=== PATIENT | female | born 1955 | race Caucasian/White ===

== ENCOUNTER 2020-01-18 19:37 | Inpatient (IN) ==
[2020-01-18] MEDS ORDERED: APRESOLINE IV ONE ×2 (20:03→21:11)
--- NOTE | 2020-01-18 20:07 | EKG Report ---
Test Performed on : 01/18/2020 7:50:46 PM Test Reason : High Blood Pressure Hx. of CAD Blood Pressure : / mmHG Vent. Rate : 059 BPM Atrial Rate : 059 BPM P-R Int : 136 ms QRS Dur : 084 ms QT Int : 446 ms P-R-T Axes : 029 -24 087 degrees QTc Int : 441 ms Sinus bradycardia. Possible Anterior infarct , age undetermined Abnormal ECG When compared with ECG of 04-JUN-2018 21:13, Nonspecific T wave abnormality now evident in Inferior leads Nonspecific T wave abnormality, worse in Anterolateral leads Unconfirmed Result
[2020-01-18 20:35] LABS: BASO# 0.01 X1000 (0.0-0.2); BASO% 0.2 % (0.0-0.8); EOS# 0.06 X1000 (0.0-0.7); EOS% 1.1 % (0.0-10.0); HEMATOCRIT 38.2 % (37.0-47.0); HEMOGLOBIN 12.3 g/dL (12.0-16.0); LYMPH# 2.03 X1000 (1.2-3.4); LYMPH% 36.3 % (20.5-51.1); MCH 28.7 PG (27-31); MCHC 32.2 g/dL (33-37); MONO# 0.36 X1000 (0.11-0.59); MONO% 6.4 % (1.7-9.3); NEUT# 3.14 X1000 (1.4-6.5); PLT 174 X1000 (130-400); RBC 4.29 XMIL (4.2-5.4); RDW 13.4 % (11.5-14.5)
[2020-01-18 20:53] LABS: ALB/GLOB RATIO 1.6; ALBUMIN 3.9 g/dL (3.5-5.0); CALCIUM 8.6 mg/dL (8.8-10.2); CREATININE 1.7 mg/dL (0.5-0.9); POTASSIUM 4.5 mmol/L (3.5-5.1); TOTAL BILIRUBIN 0.27 mg/dL (0.20-1.00); TOTAL PROTEIN 6.4 g/dL (6.3-8.3)
[2020-01-18] MEDS ORDERED: NS 500 ML IV ONE (20:55)
--- NOTE | 2020-01-18 21:38 | Diag Imaging Result Doc PS360 ---
EXAM: CT HEAD W/O CONTRAST INDICATION: HTN, RIVERA TECHNIQUE: This exam was performed using automated exposure control, adjustment of mA or kV according to patient size, and/or use of iterative reconstruction technique. COMPARISON: 05/31/2018 FINDINGS: There is low-attenuation in the periventricular and subcortical white matter suggesting advanced microangiopathy, stable. There is a chronic lacunar infarct associated with the left basal ganglion. This is stable. There is no definite acute infarct given the limited sensitivity of CT versus MRI. There is no discrete intracranial mass, mass effect, or intracranial hemorrhage. The surrounding soft tissues and bony structures are essentially unremarkable. IMPRESSION: Chronic appearing changes as described. No definite acute intracranial pathology by CT. Electronically signed by Freddie Ford 01/18/2020 9:35 PM
[2020-01-18] MEDS ORDERED: CATAPRES PO ONE (21:45)
[2020-01-18] MEDS ORDERED: LASIX IV ONE (21:55)
[2020-01-18] MEDS ORDERED: NITROGLYCERIN TOP ONE (22:26)
--- NOTE | 2020-01-18 22:27 | PROVIDER DOCUMENTATION ---
This chart was entered by Lashonda Purcell Scribe, acting as scribe for Abena Malcolm CRNP. HPI-General Adult - General Chief Complaint: B/P Problems Stated Complaint: HIGH B/P, BAD HEADACHE, NAUSEATED Time Seen by Provider: 01/18/20 19:51 Source: patient Allergies/Adverse Reactions: Patient Allergies Allergy/AdvReac Type Severity Reaction Status Date / Time Penicillins Allergy Mild RASH Verified 01/18/20 20:25 Home Medications: Home Medication List Medication Instructions Recorded Confirmed Last Taken Type Clopidogrel [Plavix] 75 mg PO DAILY 02/07/14 04/27/17 02/07/14 08:00 History Duloxetine [Cymbalta] 60 mg PO DAILY 02/07/14 04/27/17 02/07/14 08:00 History Losartan [Cozaar] 50 mg PO DAILY 02/07/14 04/27/17 02/06/14 22:00 History Metformin E.r. [Glucophage Xr] 850 mg PO TID 02/07/14 04/27/17 02/07/14 08:00 History Pioglitazone [Actos] 45 mg PO DAILY 02/07/14 04/27/17 02/07/14 08:00 History Trazodone [Desyrel] 50 mg PO HS PRN PRN 02/07/14 04/27/17 02/06/14 22:00 History Naltrexone HCl 3 mg PO QHS 02/06/16 04/27/17 Unknown History Ondansetron [Zofran] 4 mg PO Q6H PRN PRN #20 tablet 02/06/16 04/27/17 Unknown Rx PRAVAstatin [Pravachol] 20 mg PO DAILY 02/06/16 04/27/17 Unknown History Pantoprazole [Protonix 40 mg PO DAILY 02/06/16 04/27/17 Unknown History [Nonformulary]] Cyclobenzaprine [Flexeril] 10 mg PO TID #20 tablet 04/27/17 Unknown Rx Diphenhydramine [Benadryl] 25 mg PO Q6H PRN #20 cap 05/01/18 Unknown Rx Prednisone 40 mg PO DAILY 3 Days tab 05/01/18 Unknown Rx Azithromycin [Zithromax Z-Kushal] 250 mg PO DIRECTED #1 pkg 06/05/18 Unknown Rx - History of Present Illness -Gen Adult Nature of Presenting Problems: 64 yof presents to the ed with c/o elevated BP and RIVERA. pt checked bp prior to ed visit and noted it was elevated. she reports some vision changes and RIVERA for 1 week. pt has no CVA sx Location of Pain/Injury: reports: head (RIVERA) Pain Radiation: reports: no radiation Quality of Pain: reports: throbbing Severity: reports: moderate Onset/Duration: reports: 1 week ago Timing: reports: intermittent Context/Activities at Onset: reports: light activity Modifying Factors: improves with: nothing Associated Symptoms: reports: EENT symptoms, headaches. denies: back/neck pain, chest pain, diarrhea, fever/chills, shortness of breath, vomiting Similar Symptoms Previously?: Yes (hx of HTN) Recently seen or treated by another doctor?: No Review of Systems - Adult - REVIEW OF SYSTEMS - ADULT Constitutional: denies: chills, fever Eyes: reports: see HPI, blurred vision Ears, Nose, Mouth & Throat: reports: no symptoms reported Cardiovascular: denies: chest pain, palpitations Respiratory: denies: cough, shortness of breath, wheezing Gastrointestinal: denies: diarrhea, nausea, vomiting Genitourinary: reports: no symptoms reported Musculoskeletal: reports: no symptoms reported Integumentary: reports: no symptoms reported Neurological: reports: see HPI, headache/migraines. denies: dizziness/vertigo, slurred speech Psychiatric: reports: no symptoms reported Endocrine: reports: no symptoms reported Hematologic/Lymphatic: reports: no symptoms reported Allergic/Immunologic: reports: no symptoms reported All Other Systems: Reviewed and Negative Past History - Adult - PAST MEDICAL HISTORY-ADULT Review of Records: reports: Old Records Reviewed, Nursing Assessment Review, Medications Reviewed, Social history reviewed & non-contributory. Major Childhood Illnesses: reports: denies history Cardiovascular: reports: CAD, HTN, hyperlipidemia, DC Respiratory: reports: COPD Gastrointestinal: reports: denies history Obstetrical/Gynecological: reports: denies history Genitourinary: reports: other (CKD) Musculoskeletal: reports: denies history Neurological: reports: CVA, TIA Endocrine/Immune: reports: Diabetes Diabetes Type: Type 2 Other Conditions: reports: denies history - PRIOR SURGERIES/PROCEDURES Surgical/Procedure History: reports: CABG, cholecystectomy, cardiac stent - IMMUNIZATION STATUS Childhood Immunizations: See Nurse Assessment Flu Vaccine: See Nurse Assessment - FAMILY HISTORY Family History: reviewed, not pertinent - SOCIAL HISTORY Smoking: cigarettes, less than 1 pack/day Provider spent 3-5 mins advising pt. on dangers of tobacco.: Discussed manners to quit use, and f/u contacts for add'l counseling. Substance Use: denies Alcohol Use Frequency: never Living Situation: family Physical Exam-General - PHYSICAL EXAM-ADULT Initial Vital Signs Reviewed: Yes (noted BP 233/103) - CONSTITUTIONAL General Appearance: appears well, alert, no apparent distress - EYES Eyes: PERRL/EOMI, pink conjunctivae - HEAD, EARS, NOSE, MOUTH & THROAT HENMT: moist mucous membranes - NECK Neck: non-tender, full range of motion, supple, normal inspection - RESPIRATORY Respiratory: chest non-tender, lungs clear, normal breath sounds - CARDIOVASCULAR Cardiovascular: bradycardia (58) - CHEST (BREASTS) Chest/Breast: deferred - GASTROINTESTINAL (ABDOMEN) Abdominal Exam: normal bowel sounds, non tender, soft - GENITOURINARY Female Genitalia/Pelvic Exam: deferred Rectal Exam: deferred Hemoccult Exam: deferred - MUSCULOSKELETAL Back Exam: no CVA tenderness, no vertebral tenderness Extremity: normal range of motion, non-tender, normal gait, normal inspection - SKIN Integumentary: normal color, normal turgor, warm/dry - NEUROLOGIC Neurologic: mica patcher II-XII nml as tested - PSYCHIATRIC Psych/Mental Status: normal mood/affect, normal thought content, normal thought process, oriented x 3 Progress - PLAN OF CARE/RESULTS Progress/Plan/Lab Results: Vital Signs - 8 hr 01/18/20 19:40 Temperature 98.6 F Pulse Rate 63 Respiratory Rate 20 Blood Pressure 233/103 O2 Sat by Pulse Oximetry 96 Orders Category Date Time Status NEWS Score 2-4:Order NEWS Lactate Series NOW Care 01/18/20 19:59 Active Saline Loc NOW Care 01/18/20 19:[address] HEAD W/O CONTRAST [CT] Stat Exams 01/18/20 19:52 Ordered CBC WITH ELECTRONIC DIFF [HEME] Stat Lab 01/18/20 19:51 Uncollected COMPREHENSIVE METABOLIC PANEL [CHEM] Stat Lab 01/18/20 19:52 Uncollected TROPONIN T HIGH SENSITIVITY Stat Lab 01/18/20 19:52 Uncollected Hydralazine [Apresoline] Med 01/18/20 20:03 Discontinued 5 mg IV NOW ONE EKG [EKG] Stat Ther 01/18/20 19:52 Draft EKG [EKG] Stat Ther 01/18/20 19:53 Ordered Result Diagrams: 01/18/20 20:08 01/18/20 20:08 - REASSESSMENT Reassessment #1 Time Reassessed: 21:52 Status: improving (RIVERA has improved, HTN remains, d/w Dr. Estrella she recommends 0.1mg Clonidine PO) - EKG 1 Time of EKG reading by physician:: 19:50 EKG Read and Signed by:: Miya Estrella EKG Interpretation (*Must complete 3 of following elements*): Abnormal Rate: 59 Rhythm: sinus bradycardia [place]: normal QRS: normal [place] Interval: normal Prior EKG Comparison: changes noted Comments: possible anterior infarct, age undetermined 2 Time of EKG reading by physician:: 22:12 EKG Read and Signed by:: Miya Estrella EKG Interpretation (*Must complete 3 of following elements*): Abnormal Rate: 62 Rhythm: NSR [place]: normal [place] Interval: normal Prior EKG Comparison: changes noted (prolonged QT) Comments: ST and T wave abnormality, consider anterolateral ischemia - CT/MRI 1 CT Study: Head Impression: See EMR Report (EXAM: CT HEAD W/O CONTRAST INDICATION: HTN, RIVERA TECHNIQUE: This exam was performed using automated exposure control, adjustment of mA or kV according to patient size, and/or use of iterative reconstruction t echnique. COMPARISON: 05/31/2018 FINDINGS: There is low-attenuation in the periventricular and subcortical white matter suggesting advanced microangiopathy, stable. There is a chronic lacunar infarct associated with the left basal ganglion. This is stable. There is no definite acute infarct given the limited sensitivity of CT versus MRI. There is no discrete intracranial mass, mass effect, or intracranial hemorrhage. The surrounding soft tissues and bony structures are essentially unremarkable. IMPRESSION: Chronic appearing changes as described. No definite acute intracranial pathology by CT. Electronically signed by Freddie Ford 01/18/2020 9:35 PM 01/18/202134 Interpreting Physician: Freddie Ford MD Dictated Date/Time: 01/18/202133 cc: Abena Malcolm; Vinod Bailey MD) - CONSULTS/PCP/HOSPITALIST Notification #1 *Consult/PCP/Hospitalist*: Dr. Turner Time Discussed: 22:27 Consult Disposition: Admit Departure - Departure Date of Disposition Decision: 01/18/20 Time of Disposition Decision: 22:22 DIAGNOSIS: CHF (congestive heart failure), Hypertensive urgency Disposition: ADMITTED INPATIENT 09 Certified Medical Emergency: Emergent Condition: Stable Referrals and Follow-Ups: Vinod Bailey MD [Primary Care Provider] - - Critical Care Note This patient required my direct & personal management of CC.: No Attestation - Physician/ REMI Attestation Patient care was provided by Advanced Practice Provider:: Yes Advanced Practice Provider:: Abena Malcolm Advanced Practice Provider documentation review:: The Mid-level provider documentation, treatment plan and medical decision making was reviewed by the physician who agrees with all treatment and medical decision making by the MLP. The physician spent face to face time with patient:: Yes Advanced Practice Provider documentation review:: Supervising physician onsite and consulted in the evaluation and care of this patient. The physician did have a face to face encounter with the patient. This chart was documented by the indicated scribe, (Lashonda Purcell Scribe) and accurately reflects the services I performed and decisions made by me, Abena Malcolm CRNP, as attested by the provider's signature.
--- NOTE | 2020-01-18 23:07 | EKG Report ---
Test Performed on : 01/18/2020 10:12:14 PM Test Reason : HTN Blood Pressure : / mmHG Vent. Rate : 062 BPM Atrial Rate : 062 BPM P-R Int : 122 ms QRS Dur : 082 ms QT Int : 484 ms P-R-T Axes : 020 -22 018 degrees QTc Int : 491 ms Normal sinus rhythm. ST & T wave abnormality, consider anterolateral ischemia Prolonged QT Abnormal ECG When compared with ECG of 18-JAN-2020 22:11, (Unconfirmed) No significant change was found Unconfirmed Result
[2020-01-19] MEDS ORDERED: TYLENOL PO PRN (00:35)
[2020-01-19] MEDS ORDERED: ZOFRAN IV PRN (00:35)
[2020-01-19] MEDS: APRESOLINE IV PRN (01:34)
[2020-01-19] MEDS: LOVENOX SUBQ SCH (01:34)
[2020-01-19] MEDS ORDERED: DESYREL PO PRN (06:26)
[2020-01-19 06:35] LABS: CALCIUM 8.7 mg/dL (8.8-10.2); CREATININE 1.8 mg/dL (0.5-0.9); HEMOGLOBIN A1C 6.6 % (4.8-6.0); POTASSIUM 4.5 mmol/L (3.5-5.1)
--- NOTE | 2020-01-19 06:35 | Diag Imaging Result Doc PS360 ---
EXAM: CHEST-PORTABLE HISTORY: HTN TECHNIQUE: Single view COMPARISON: 06/04/2018 FINDINGS: The lungs are well expanded. The heart is not enlarged. There are sternal wires. The vessels are borderline mildly distended. There are no infiltrates. No effusion identified. Right-sided granuloma. IMPRESSION: Negative exam. Electronically signed by James Calixto 01/19/2020 6:32 AM
--- NOTE | 2020-01-19 07:25 | HISTORY AND PHYSICAL ---
CHIEF COMPLAINT: Headache. HISTORY OF PRESENT ILLNESS: This is a 64-year-old female who comes into the emergency room with a complaint of headache. She had the headache for around a week and some visual changes. She also states that her blood pressure for the last day has been very elevated. She does take medicines for hypertension. She has a history of coronary artery disease, hypertension, hyperlipidemia, previous ND, previous TIA, previous CVA, diabetes mellitus Type 2, COPD and she continues to smoke cigarettes. Blood pressures were elevated in the emergency room over 200. CT did show chronic lacunar infarct within the left basal ganglia. The patient will be admitted for further evaluation and treatment. PAST MEDICAL HISTORY: See HPI. PREVIOUS SURGICAL HISTORY: CABG, cholecystectomy, cardiac stenting, knee surgery. SOCIAL HISTORY: Continues to smoke less than a pack a day. No alcohol. No illicit drugs. FAMILY HISTORY: Positive for diabetes and coronary artery disease. ALLERGIES: Penicillin. HOME MEDICATIONS: The list has not been reconciled. Order was placed for nursing to reconcile home medications. These will be restarted when appropriate. REVIEW OF SYSTEMS: A 14-point review of systems conducted with the patient. She had nausea associated with the headache as well. Other pertinent positives listed above in the HPI. All other systems reviewed and found to be negative. PHYSICAL EXAMINATION: VITAL SIGNS: Temperature 98.2, pulse 58, respirations 19, blood pressure 225/84, oxygen saturation 99% on room air. GENERAL: A pleasant 64-year-old female lying on the ER stretcher. She is alert and oriented times 3. She is in no acute distress. HEENT: Head is atraumatic, normocephalic. Pupils equal, round, react to light. Extraocular eye movement is intact. Sclera is anicteric. Conjunctiva is pink. Oral mucosa is moist. NECK: Supple. No JVD. Trachea is midline. CARDIAC: S1, S2 appreciated. No murmurs, gallops or rubs. LUNGS: Clear to auscultation bilaterally. No rhonchi, wheezes, rales. Symmetric rise and fall with respirations. ABDOMEN: Soft, nondistended, nontender. Bowel sounds present in all 4 quadrants and normoactive. No pulsatile mass. No organomegaly. EXTREMITIES: No clubbing, cyanosis or edema. Two-plus pedal pulses bilaterally. GENITOURINARY: No bladder distention. Patient voids. Otherwise deferred. NEUROLOGICAL: Alert and oriented times 3. Cranial nerves II through XII grossly intact. No neurological deficits noted. DIAGNOSTIC DATA: CT of the head showed old lacunar infarct. Chest x-ray borderline cardiomegaly. LABORATORY DATA: CBC within normal limits. Sodium 141, potassium 4.5, chloride 103, carbon dioxide 26, BUN 23, creatinine 1.7, glucose 116. ASSESSMENT: 1. Hypertensive urgency. 2. Intractable headache. 3. Diabetes mellitus Type 2. 4. Hyperlipidemia. 5. Previous CVA. 6. Coronary artery disease. 7. CKD Stage 3. PLAN: Admit the patient to the medical floor. Order echo, carotid ultrasound and MRI to rule out CVA. Will allow for permissive hypertension and keep the patient around 170 systolic. Her headache is resolved at this time, however, will put Tylenol on her medication profile. Sliding scale insulin fingerstick blood sugars. Continue home antihypertensives and continue to monitor. Further recommendations based on the patient's clinical course. Dictated by VICENTE Soni for Roland Turner MD I have performed a face to face diagnostic evaluation. Labs/Xrays- reviwed. Exam- Chest -clear, CV- regular. A/P- Hypertensive urgency, Headache- Admit, monitor BP closely, antihypertensive agents, Tylenol prn. Dr. Turner cc: VICENTE Soni MD [facility]
[2020-01-19] MEDS ORDERED: PRAVACHOL PO SCH (09:00)
[2020-01-19] MEDS: FISH OIL CONCENTRATE PO SCH (09:56)
[2020-01-19] MEDS: JANUVIA PO SCH (09:56)
[2020-01-19] MEDS: NEURONTIN PO SCH (09:56)
[2020-01-19] MEDS: PLAVIX PO SCH (09:57)
[2020-01-19] MEDS: TYLENOL PO SCH (09:57)
[2020-01-19] MEDS: CYMBALTA PO SCH (09:57)
[2020-01-19] MEDS: COREG PO SCH (09:58)
[2020-01-19] MEDS: COZAAR PO SCH (09:58)
--- NOTE | 2020-01-19 11:59 | Diag Imaging Result Doc PS360 ---
EXAM: MRI BRAIN W/O CONTRAST INDICATION: cva COMPARISON: MRI dated 05/25/[address] dated 01/18/2020 FINDINGS: There is no evidence of acute infarct. There is a chronic lacunar infarct involving the left basal ganglion that was also seen on the recent CT. There is extensive patchy T2/FLAIR hyperintensity in the periventricular and subcortical white matter as well as the pontine white matter suggesting advanced microangiopathy. It has worsened since 2011. There is no discrete intracranial mass, mass effect, or intracranial hemorrhage. There is a trace right mastoid air cell effusion. Surrounding soft tissues and bony structures are essentially unremarkable, otherwise. IMPRESSION: Evidence of advanced white matter microangiopathy that has worsened since 2011 and a small chronic lacunar infarct associated with the left basal ganglion. No definite acute intracranial pathology. Electronically signed by Freddie Ford 01/19/2020 11:56 AM
--- NOTE | 2020-01-19 15:47 | PROGRESS NOTE ---
DATE: 01/19/2020 SUBJECTIVE: The patient has no major complaints except she still has an occipital located headache. She also has dizziness, especially when walking or just standing up. She feels like she is floating, although she denies really vertiginous symptoms associated. OBJECTIVE: Vital Signs: Blood pressure 171/57, heart rate of 66, respiratory rate 13, temperature 98.7 degrees. Cardiovascular: Regular rate and rhythm. Pulmonary: Bilateral breath sounds clear to auscultation. GI: Soft, nontender, nondistended. Bowel sounds were positive. Neurologic: Nonfocal. No pronator drift. No facial asymmetry. PROBLEM LIST: 1. Dizziness but without true vertigo. Differential is wide. I do not think this is a transient ischemic attack or cerebrovascular accident. It certainly could be vascular. It could be something as simple as a migraine. I do not think this is normal-pressure hydrocephalus based on lack of ventriculomegaly, and she does not have other bazzi features. 2. Malignant hypertension, hypertensive emergency. PROS is certainly a possibility although she did not have PROS changes noted on her MRI. That being said, her blood pressure is still elevated. Since she has not had a stroke, I think we are going to progress with better control, and I will add Norvasc to her regimen. We will try to get an MRA if possible to rule out vasculitis. She has renal insufficiency so we cannot give her contrast. 3. Type 2 diabetes seems under decent control. Her A1c is 6.6, which is pretty good. Sugars look pretty good actually. She is on Januvia alone but seems to be doing okay. DISPOSITION: I think if workup is negative, possibly anticipate discharge tomorrow. I think she is stable to go to the floor. cc: Joe Ramey MD
[2020-01-19] MEDS: NORVASC PO SCH (15:49)
--- NOTE | 2020-01-19 15:49 | Diag Imaging Result Doc PS360 ---
EXAM: MRA BRAIN W/O CONTRAST 01/19/2020 HISTORY: vasculitis TECHNIQUE: 3-D [id number] COMMENT: There is no evidence of aneurysm or major branch occlusion. No evidence of stenosis or beading is present. IMPRESSION: Normal MRI of the brain. Electronically signed by Ryan Tristan 01/19/2020 3:46 PM
--- NOTE | 2020-01-19 16:23 | ECHO REPORT ---
ORDER DATE: 01/19/2020 INTERPRETING PHYSICIAN: Dr. Jackson REQUESTING PHYSICIAN: CLINICAL INDICATIONS: This is a 64-year-old female with CHF. M-MODE MEASUREMENTS: Right ventricle: cm. Left ventricle end diastole: 5.7 cm. Left ventricle end systole: 3.7 cm. Posterior wall: 1.1 cm. Interventricular septum: 1.1 cm. Left atrium: 4.5 cm. Aortic diameter: 3.8 cm. SUMMARY OF 2-DIMENSIONAL IMAGIN. The left ventricular function is normal. Ejection fraction is 58%. There is no wall motion abnormality noted. 2. Right ventricle appears to be normal. 3. Aortic valve looks normal. Color flow mapping indicates mild degree of aortic regurgitation. 4. Tricuspid valve showed mild degree of regurgitation. 5. Pulmonary pressure estimated at 36 mmHg. 6. Pulmonic valve is normal. Color flow mapping is unremarkable. 7. Mitral valve showed mild degree of regurgitation. 8. Pulse wave Doppler of mitral inflow showed mild reversal of the E and the A ratio. Ratio is 0.8. 9. Tissue Doppler of septal and lateral mitral annulus averages 5 cm. 10.There is impaired left ventricular relaxation. 11.There is no pericardial effusion, mass or thrombus. 12.Left atrium appears to be moderately enlarged. 13.Right sided chambers appear to be normal. Clinical correlation is recommended. cc: MD Willy Gao CRNP
[2020-01-20 06:35] LABS: BASO# 0.02 X1000 (0.0-0.2); BASO% 0.4 % (0.0-0.8); EOS# 0.08 X1000 (0.0-0.7); EOS% 1.5 % (0.0-10.0); HEMATOCRIT 35.5 % (37.0-47.0); HEMOGLOBIN 11.4 g/dL (12.0-16.0); LYMPH# 1.68 X1000 (1.2-3.4); LYMPH% 31.5 % (20.5-51.1); MCH 28.5 PG (27-31); MCHC 32.1 g/dL (33-37); MCV 88.8 FL (81-99); MONO# 0.33 X1000 (0.11-0.59); MONO% 6.2 % (1.7-9.3); MPV 10.9 FL (7.4-10.4); NEUT# 3.22 X1000 (1.4-6.5); NEUT% 60.4 % (42.2-75.2); PLT 171 X1000 (130-400); RDW 13.5 % (11.5-14.5); WBC 5.33 X1000 (4.8-10.8)
[2020-01-20 07:05] LABS: ALB/GLOB RATIO 1.1; ALBUMIN 3.2 g/dL (3.5-5.0); C REACTIVE PROT QUANT 2.44 mg/L (0.00-5.00); CALCIUM 8.3 mg/dL (8.8-10.2); CREATININE 1.9 mg/dL (0.5-0.9); POTASSIUM 4.6 mmol/L (3.5-5.1); TOTAL BILIRUBIN 0.29 mg/dL (0.20-1.00)
[2020-01-20] MEDS ORDERED: FIORICET PO PRN (08:30)
[2020-01-20] MEDS: COREG PO SCH ×2 (08:51→08:54)
[2020-01-20] MEDS: TYLENOL PO SCH ×2 (08:52→08:54)
[2020-01-20] MEDS: CYMBALTA PO SCH ×2 (08:52→08:54)
[2020-01-20] MEDS: PLAVIX PO SCH (08:53)
[2020-01-20] MEDS: COZAAR PO SCH (08:53)
[2020-01-20] MEDS: LOVENOX SUBQ SCH (08:53)
[2020-01-20] MEDS: JANUVIA PO SCH (08:54)
[2020-01-20] MEDS: APRESOLINE IV PRN (08:54)
[2020-01-20] MEDS: FISH OIL CONCENTRATE PO SCH (08:54)
[2020-01-20] MEDS: NORVASC PO SCH (08:54)
[2020-01-20] MEDS: NEURONTIN PO SCH (09:07)
--- NOTE | 2020-01-20 17:05 | DISCHARGE SUMMARY ---
ADMISSION DATE: 01/18/2020 DISCHARGE DATE: 01/20/2020 DISCHARGE DIAGNOSES: 1. Malignant hypertension with headache, possible migraine versus tension headache, rule out transient ischemic attack or cerebrovascular accident. 2. Type 2 diabetes. PROCEDURES: None. HOSPITAL COURSE: Briefly, this is a 64-year-old who came in with a very high blood pressure and headache. She had an echocardiogram, ultrasound, and MRI. Systolic was above 170. MRI did not show any acute infarct. She had a chronic lacunar infarct and white matter microangiopathy that has worsened since 2011. Echo showed an EF of 58%. No wall motion abnormality. Overall, there had been no major issues. No intracardiac thrombi. MRA was obtained to look for possible aneurysm or stenosis beating, but that was negative, in case this was some sort of vasculitis. She did have some mild renal insufficiency, but it was stable. A1c was 6.6. Her proBNP was elevated, but there was no evidence of fluid. In any case, the patient was admitted. Her headache became under control. Coreg 6.25 b.i.d., Cozaar 50 daily, Cymbalta 60 b.i.d., trazodone 50 at bedtime, fish oil daily, gabapentin 300 daily, Januvia 100 daily, nystatin 60 powder daily, Plavix 75 daily, Pravachol 20 daily, Tylenol Arthritis 325 b.i.d., butalbital, Fioricet 1 p.o. q. 4 hours p.r.n. headache, and then Norvasc 5 mg daily. She is to follow up with her primary who is Dr. Bailey. She also sees Dr. Parra. Either one would be okay just for blood pressure check and further management because I think this was most likely malignant hypertension with a secondary headache. TOTAL TIME SPENT: A 32-minute discharge. cc: Joe Ramey MD
[2020-01-20 17:39] VITALS: BP 166/74
[2020-01-20] MEDS ORDERED: PRAVACHOL PO SCH (21:00)
--- NOTE | 2020-01-22 14:26 | Carotid Study ---
DATE: 01/19/2020 GUIDE TRAVEL: [place]. REQUESTING PHYSICIAN: VICENTE Soni. EXAM FOR COMPARISON: 08/09/2018. INDICATIONS: Questionable CVA with headache, dizziness, and instability. FINDINGS: Bilateral carotid artery systems were visualized along their course. On the right, there is again noted very mild atherosclerotic plaque disease noted [*] proximal internal carotid artery but no significant atherosclerotic changes noted in the left. The vertebrals were antegrade bilaterally. IMPRESSION: Mild degree of atherosclerotic changes noted on the right, stable from previous, with no significant lesion on the left [*] . cc: MD Willy Otoole CRNP
== END 2020-01-20 17:40 | disposition home or self-care (01) | DRG 305 ==
LOC: ED 19:37 → SUATTDRO 23:47 → 2N 23:47 → 3N 01-19 16:23
PROVIDERS: ATTEND Internal Medicine